=== PATIENT | female | born 1985 | race Caucasian/White ===

== ENCOUNTER 2023-04-12 16:12 | Emergency (ER) | payer OTHER ==
[~2023-04-12] VITALS: Ht 167.6 cm; Wt 72.7 kg
[2023-04-12 17:36] VITALS: TEMP 97.8
[2023-04-12] MEDS: IBUPROFEN 600 MG TABLET PO ONE (17:44)
[2023-04-12 19:14] VITALS: BP 145/92; PULSE 73; RESP 18
== END 2023-04-12 19:44 | disposition home or self-care (01) ==
LOC: EMS 16:12
DX: I10 Essential (primary) hypertension (principal); Z88.8 Allergy status to other drugs, medicaments and biological substances
CPT/HCPCS: 99283